=== PATIENT | female | born 1935 | race Caucasian/White ===

== ENCOUNTER 2016-05-13 06:16 | Emergency (ER) | payer OTHER, MEDICARE ==
[~2016-05-13] VITALS: Ht 154.9 cm; Wt 58.5 kg
[2016-05-13 06:25] VITALS: BP 103/64; PULSE 62; RESP 17; TEMP 97.9; O2SAT 96
--- NOTE | 2016-05-13 06:30 | NUR ---
Patient to ER bed 6 to gown for evaluation. Side rails up. Report given to Landry DIAZ. Placed by Nel DIAZ.
--- NOTE | 2016-05-13 06:35 | NUR ---
Pt states that she has been having R wrist pain since yesterday. Woke up with 7/10 pain today. Denies any trauma. AAOx4. Will continue to monitor. No other injuries or complaints mentioned/noted. No distress noted.
--- NOTE | 2016-05-13 06:55 | NUR ---
LUZMARIA Alvarado at bedside examining patient.
--- NOTE | 2016-05-13 07:05 | NUR ---
Report and care endorsed to Mac DIAZ.
--- NOTE | 2016-05-13 07:05 | NUR ---
Pt report received from JOE Alatorre. Pt states that her Right wrist hurts with movement. No c/o of pain at this time. Family member at bedside.
[2016-05-13] MEDS ORDERED: KETOROLAC TROMETHAMINE 60 MG/2 ML VIAL IM ONE (07:15)
--- NOTE | 2016-05-13 07:45 | NUR ---
Fluffy cotton wrapping placed to Right wrist, non constrictive, cap refill < 3 sec. Velcro wrist splint applied.
[2016-05-13 07:52] VITALS: BP 142/68; PULSE 88; RESP 18; TEMP 97.8; O2SAT 100
--- NOTE | 2016-05-13 07:52 | NUR ---
Patient given written and verbal discharge instructions and verbalizes understanding. ER MD discussed with patient the results and treatment provided. Patient in stable condition. ID arm band removed. Patient educated on pain management and to follow up with PMD. Pain Scale 0/10. Opportunity for questions provided and answered.
== END 2016-05-13 07:52 | disposition home or self-care (01) ==
LOC: SED 06:16
DX: M19.031 Primary osteoarthritis, right wrist (principal); I10 Essential (primary) hypertension; E78.00 Pure hypercholesterolemia, unspecified
CPT/HCPCS: 29125; 96372; 99283; J1885

== ENCOUNTER 2019-01-30 12:42 | Emergency (ER) | payer OTHER, MEDICARE ==
[~2019-01-30] VITALS: Ht 154.9 cm; Wt 59.0 kg
[2019-01-30 14:30] VITALS: BP_SYST 141
[2019-01-30] MEDS: SULFAMETHOXAZOLE/TRIMETHOPR DS 1 TABLET PO ONE (17:11)
[2019-01-30] MEDS: IBUPROFEN 400 MG TABLET PO ONE (17:11)
[2019-01-30 17:25] VITALS: BP_SYST 141
== END 2019-01-30 17:25 | disposition home or self-care (01) ==
LOC: SED 12:42
DX: S63.91XA Sprain of unspecified part of right wrist and hand, initial encounter (principal); I10 Essential (primary) hypertension; X50.9XXA Other and unspecified overexertion or strenuous movements or postures, initial encounter; Y93.89 Activity, other specified; Y92.89 Other specified places as the place of occurrence of the external cause; Y99.8 Other external cause status
CPT/HCPCS: 99283

== ENCOUNTER 2020-01-07 10:47 | Emergency (ER) | payer OTHER, MEDICARE ==
[~2020-01-07] VITALS: Ht 154.9 cm; Wt 59.0 kg
[2020-01-07 11:01] VITALS: BP_SYST 123
--- NOTE | 2020-01-07 11:01 | NUR ---
Pt came to ER after falling while walking dog yesterday. Pt states she hit L ribs on curb and is sore today. Resting in [facility] neri, awaiting
--- NOTE | 2020-01-07 11:01 | NUR ---
Patient to ER bed 6 to gown for evaluation. Side rails up.
--- NOTE | 2020-01-07 11:05 | NUR ---
ER at bedside examining patient.
--- NOTE | 2020-01-07 11:08 | NUR ---
TRANSPORTED PT TO RADIOLOGY DEPT VIA WHEELCHAIR.
--- NOTE | 2020-01-07 11:20 | NUR ---
BROUGHT PT BACK TO ROOM 6.
[2020-01-07 12:01] VITALS: BP_SYST 108
--- NOTE | 2020-01-07 12:02 | NUR ---
Patient given written and verbal discharge instructions and verbalizes understanding. ER MD discussed with patient the results and treatment provided. Patient in stable condition. ID arm band removed. Rx of Motrin given. Patient educated on pain management and to follow up with PMD. Pain Scale 0/10. Opportunity for questions provided and answered. Medication side effect fact sheet provided.
== END 2020-01-07 12:02 | disposition home or self-care (01) ==
LOC: SED 10:47
DX: S29.9XXA Unspecified injury of thorax, initial encounter (principal); I10 Essential (primary) hypertension; E78.00 Pure hypercholesterolemia, unspecified; W01.0XXA Fall on same level from slipping, tripping and stumbling without subsequent striking against object, initial encounter; Y93.89 Activity, other specified; Y92.89 Other specified places as the place of occurrence of the external cause; Y99.8 Other external cause status
CPT/HCPCS: 71045; 71100; 99284

== ENCOUNTER 2020-03-10 11:02 | Emergency (ER) | payer OTHER, MEDICARE ==
[~2020-03-10] VITALS: Ht 154.9 cm; Wt 59.0 kg
--- NOTE | 2020-03-10 11:10 | NUR ---
Patient to ER bed H1 to gown for evaluation. Side rails up.
[2020-03-10 11:16] VITALS: BP_SYST 127
--- NOTE | 2020-03-10 11:16 | NUR ---
Pt brought by self, A&Ox4, pt presents to ER with redness/ bruising on R ring finger, pt states it was after a fall yesterday, skin pink and warm, cap refill <3, VSS
--- NOTE | 2020-03-10 11:40 | NUR ---
Dr Mcgovern evaluating patient at bedside
[2020-03-10 13:55] VITALS: BP_SYST 127
--- NOTE | 2020-03-10 13:56 | NUR ---
Patient given written and verbal discharge instructions and verbalizes understanding. ER MD discussed with patient the results and treatment provided. Patient in stable condition. ID arm band removed. No Rx given. Patient educated on pain management and to follow up with PMD. Pain Scale 2/10. Opportunity for questions provided and answered. Medication side effect fact sheet provided.
== END 2020-03-10 13:55 | disposition home or self-care (01) ==
LOC: SED 11:02
DX: S62.624A Displaced fracture of middle phalanx of right ring finger, initial encounter for closed fracture (principal); W01.0XXA Fall on same level from slipping, tripping and stumbling without subsequent striking against object, initial encounter; Y93.89 Activity, other specified; Y92.89 Other specified places as the place of occurrence of the external cause; Y99.8 Other external cause status
CPT/HCPCS: 73140-TC; 99283